=== PATIENT | female | born 1970 ===

== ENCOUNTER 2017-07-21 16:42 | Emergency (ER) | payer SELFPAY ==
[2017-07-21 16:51] VITALS: BP 117/75; PULSE 105; RESP 20; TEMP 98.3; O2SAT 99
--- NOTE | 2017-07-21 17:20 | C.PDOC ---
History Of Present Illness 46 y/o female presents to the ER for evaluation of anxiety which has been present for the past 4 months. Patient states that she lost her job in April 2017. Patient reports that she also has domestic stressors. She notes that she is able to function normally during the day. She feels "anxious and jittery" at night but she is able to go to sleep. Patient would like to speak to a psychiatrist or take medication for her "nerves." Time Seen by Provider: 07/21/17 17:01 Chief Complaint (Nursing): Anxiety History Per: Patient History/Exam Limitations: no limitations Onset/Duration Of Symptoms: Days Current Symptoms Are (Timing): Still Present Severity: Moderate Past Medical History Reviewed: Historical Data, Nursing Documentation, Vital Signs Vital Signs: Last Vital Signs Temp 98.3 F 07/21/17 16:49 Pulse 105 H 07/21/17 16:49 Resp 20 07/21/17 16:49 BP 117/75 07/21/17 16:49 Pulse Ox 99 07/21/17 20:19 - Medical History PMH: Anxiety, Gastritis Surgical History: No Surg Hx - [facility] MONITORING NOS (09/01/14) REPAIR OB LACERATION NEC (09/01/14) Family History: States: Hypertension - Social History Hx Alcohol Use: Yes Hx Substance Use: No - Immunization History Hx Tetanus Toxoid Vaccination: No Hx Influenza Vaccination: No Hx Pneumococcal Vaccination: No Review Of Systems Except As Marked, All Systems Reviewed And Found Negative. Constitutional: Negative for: Fever, Chills Psych: Positive for: Anxiety Physical Exam - Physical Exam Appears: Non-toxic, No Acute Distress Skin: Normal Color, Warm Head: Atraumatic, Normacephalic Eye(s): bilateral: Normal Inspection Nose: Normal Oral Mucosa: Moist Neck: Supple Chest: Symmetrical Neurological/Psych: Oriented x3, Normal Speech, Normal Motor, Normal Sensation ED Course And Treatment O2 Sat by Pulse Oximetry: 99 (RA) Pulse Ox Interpretation: Normal Medical Decision Making Medical Decision Making: Progress: Patient has been discharged with prescription for Valium. Patient has been told to follow up with [facility]. Disposition Counseled Patient/Family Regarding: Diagnosis, Need For Followup, Rx Given - Disposition Referrals: [facility] [Outside] [facility] [Outside] Disposition: HOME/ ROUTINE Disposition Time: 17:18 Condition: STABLE Additional Instructions: Alirio jorge [phone] Prescriptions: diaZEpam [Valium] 5 mg PO TID #12 tab Instructions: Stress Forms: Gen Discharge Inst Guyanese, [facility] (Guyanese) - POA Present On Arrival: None - Clinical Impression Clinical Impression: Anxiety - Scribe Statement The provider has reviewed the documentation as recorded by the Mark Ball Provider Attestation: All medical record entries made by the Scribe were at my direction and personally dictated by me. I have reviewed the chart and agree that the record accurately reflects my personal performance of the history, physical exam, medical decision making, and the department course for this patient. I have also personally directed, reviewed, and agree with the discharge instructions and disposition.
== END 2017-07-21 17:37 | disposition home or self-care (01) ==
LOC: C.ER 16:42
DX: F41.9 Anxiety disorder, unspecified (principal)